=== PATIENT | male | born 1965 | race Caucasian/White ===

== ENCOUNTER 2018-11-01 09:36 | Emergency (ER) | payer MEDICAID ==
[2018-11-01] MEDS ORDERED: NS 1,000 ML IV ONE (09:42)
--- NOTE | 2018-11-01 09:49 | EDPHY ---
H & P Stated Complaint: diarrhea, abdominal pain, nausea Time Seen by Provider: 11/01/18 09:36 HPI/ROS: Chief complaint: Abdominal pain History of present illness: This is a 52-year-old male who is homeless who presents to the emergency department with EMS for abdominal pain. Patient reports the onset of symptoms last night. He has subsequently developed nausea without vomiting and diarrhea. He also reports tactile fevers. He denies precipitating factors. He denies any alleviating factors. He denies other associated signs or symptoms including no noted blood in the stool. No sick contacts are noted at this time. Review of systems: A 10 point review of systems was obtained and other than described above was negative - Personal History Current Tetanus Diphtheria and Acellular Pertussis (TDAP): Yes - Medical/Surgical History Hx Asthma: No Hx Chronic Respiratory Disease: No Hx Diabetes: No Hx Cardiac Disease: No Hx Renal Disease: No Hx Cirrhosis: No Hx Alcoholism: No Hx HIV/AIDS: No Hx Splenectomy or Spleen Trauma: No Other PMH: Hep C - Social History Smoking Status: Never smoked - Physical Exam Exam: General Appearance: Alert, nontoxic, easily conversant. Eyes: Pupils equal and round no pallor or injection. ENT, Mouth: Mucous membranes moist. Respiratory: There are no retractions, lungs are clear to auscultation. Cardiovascular: Regular rate and rhythm. Gastrointestinal: Bowel sounds are normal. There is mild guarding of the abdomen. Tenderness in the epigastric region. Neurological: Alert and oriented x4. Strength and sensation intact. Skin: Warm and dry, no rashes. Musculoskeletal: Neck is supple non tender. Extremities are symmetrical, full range of motion. Psychiatric: Patient is oriented X 3, there is no agitation. Constitutional: Initial Vital Signs Temperature (C) 37.1 C 11/01/18 09:39 Heart Rate 93 11/01/18 09:39 Respiratory Rate 18 11/01/18 09:39 Blood Pressure 93/85 H 11/01/18 09:39 O2 Sat (%) 100 11/01/18 09:39 O2 Delivery Mode Room Air Allergies/Adverse Reactions: diphenhydramine [From Benadryl] Allergy (Verified 11/01/18 12:56) Sulfa (Sulfonamide Antibiotics) Allergy (Verified 11/01/18 12:56) vancomycin Allergy (Verified 01/16/19 12:56) Home Medications: Medication Instructions Recorded Wellbutrin Sr 11/01/18 Medical Decision Making - Diagnostics Imaging Results: Imaging Impressions Abdomen Ultrasound 11/01/18 10:50 Impression: Cholelithiasis without evidence of cholecystitis. Findings discussed with TOSHIA Deleon 11/01/2018 at 11:20. Abdomen CT 11/01/18 11:25 Impression: 1. Fluid distention of the stomach with fluid throughout small bowel and proximal colon, which is nonspecific but could be related to enteritis. 2. Soft tissue extending from the dome of the bladder to the umbilicus, suggesting a patent urachus. Urology consultation is recommended. 3. Cholelithiasis without evidence cholecystitis. 4. Additional findings as above. Findings discussed with Davie Ha PA-C on 11/01/2018 at 12:18. Imaging: Discussed imaging studies w/ call center agent Radiologist ED Course/Re-evaluation: Patient seen under the supervision of my secondary supervising physician Dr. Nirav Purdy. Patient presents to the emergency department with abdominal pain, nausea without vomiting and diarrhea. He is nontoxic. He does have a tender abdomen. Blood studies largely unremarkable. Gallstones noted on ultrasound without evidence of complications such as cholecystitis. CT scan consistent with an enteritis. Patient has been IV hydrated. He is tolerating oral challenges. He is discharged. Home care is discussed. Return precautions are given. Differential Diagnosis: Included but not limited to gastritis, gastroenteritis, biliary tract disease, pancreatitis, colitis, appendicitis - Data Points Laboratory Results: Laboratory Results 11/01/18 09:50 11/01/18 09:50 11/01/18 11/01/18 11/01/18 11:15 09:50 09:50 WBC 8.81 10^3/uL 10^3/uL (3.80-9.50) RBC 5.73 10^6/uL 10^6/uL (4.40-6.38) Hgb 17.7 g/dL H g/dL (13.7-17.5) Hct 49.6 % % (40.0-51.0) MCV 86.6 fL fL (81.5-99.8) MCH 30.9 pg pg (27.9-34.1) MCHC 35.7 g/dL g/dL (32.4-36.7) RDW 13.2 % % (11.5-15.2) Plt Count 271 10^3/uL 10^3/uL (150-400) MPV 9.5 fL fL (8.7-11.7) Neut % (Auto) 90.4 % H % (39.3-74.2) Lymph % (Auto) 4.9 % L % (15.0-45.0) [place] % (Auto) 4.1 % L % (4.5-13.0) Eos % (Auto) 0.0 % L % (0.6-7.6) Baso % (Auto) 0.1 % L % (0.3-1.7) Nucleat RBC Rel Count 0.0 % % (0.0-0.2) Absolute Neuts (auto) 7.96 10^3/uL H 10^3/uL (1.70-6.50) Absolute Lymphs (auto) 0.43 10^3/uL L 10^3/uL (1.00-3.00) Absolute Monos (auto) 0.36 10^3/uL 10^3/uL (0.30-0.80) Absolute Eos (auto) 0.00 10^3/uL L 10^3/uL (0.03-0.40) Absolute Basos (auto) 0.01 10^3/uL L 10^3/uL (0.02-0.10) Absolute Nucleated RBC 0.00 10^3/uL 10^3/uL (0-0.01) Immature Gran % 0.5 % % (0.0-1.1) Immature Gran # 0.04 10^3/uL 10^3/uL (0.00-0.10) RBC/WBC/PLT Morphology TNP Platelet Estimate TNP Sodium 138 mEq/L mEq/L (135-145) Potassium 4.0 mEq/L mEq/L (3.5-5.2) Chloride 103 mEq/L mEq/L (97-110) Carbon Dioxide 24 mEq/l mEq/l (22-31) Anion Gap 11 mEq/L mEq/L (6-14) BUN 19 mg/dL mg/dL (7-23) Creatinine 0.9 mg/dL mg/dL (0.7-1.3) Estimated GFR > 60 Glucose 88 mg/dL mg/dL (70-100) Calcium 9.6 mg/dL mg/dL (8.5-10.4) Total Bilirubin 1.9 mg/dL H mg/dL (0.1-1.4) Conjugated Bilirubin 0.3 mg/dL mg/dL (0.0-0.5) Unconjugated Bilirubin 1.6 mg/dL H mg/dL (0.0-1.1) AST 24 IU/L IU/L (17-59) ALT 23 IU/L IU/L (21-72) Alkaline Phosphatase 83 IU/L IU/L (38-126) Total Protein 7.7 g/dL g/dL (6.3-8.2) Albumin 4.8 g/dL g/dL (3.5-5.0) Lipase 141 IU/L IU/L (23-300) Urine Color YELLOW Urine Appearance CLEAR Urine pH 5.0 (5.0-7.5) Ur Specific [place] 1.019 (1.002-1.030) Urine Protein NEGATIVE (NEGATIVE) Urine Ketones NEGATIVE (NEGATIVE) Urine Blood NEGATIVE (NEGATIVE) Urine Nitrate NEGATIVE (NEGATIVE) Urine Bilirubin NEGATIVE (NEGATIVE) Urine Urobilinogen NEGATIVE EU EU (0.2-1.0) Ur Leukocyte Esterase NEGATIVE (NEGATIVE) Urine RBC 1-3 /hpf /hpf (0-3) Urine WBC 1-3 /hpf /hpf (0-3) Ur Epithelial Cells TRACE /lpf /lpf (NONE-1+) Urine Mucus TRACE /lpf /lpf (NONE-1+) Urine Glucose NEGATIVE (NEGATIVE) Medications Given: Discontinued Medications Sodium Chloride (Ns) 1,000 mls @ 0 mls/hr IV EDNOW ONE; Wide Open PRN Reason: Protocol Stop: 11/01/18 09:43 Last Admin: 11/01/18 09:47 Dose: 1,000 mls Departure - Departure Disposition: Home, Routine, Self-Care Clinical Impression: Abdominal pain Qualifiers: Abdominal location: generalized Qualified Code(s): R10.84 - Generalized abdominal pain Condition: Good Instructions: Acute Nausea and Vomiting (ED), Acute Diarrhea (ED), Acute Abdominal Pain (ED) Additional Instructions: Follow-up with a primary care doctor for continued evaluation and care Drink plenty of fluids to stay hydrated You should follow-up with the urologist for the urinary bladder finding on the CT scan If symptoms worsen or new symptoms develop return to the emergency department for recheck Referrals: Patient,NotPresent [Unknown] - As per Instructions [facility],. [Clinic] - As per Instructions Ulisses Sanchez MD [Medical Doctor] - As per Instructions
[2018-11-01 10:11] LABS: PLATELET COUNT 271 10^3/uL (150-400)
[2018-11-01] MEDS ORDERED: IOPAMIDOL (ISOVUE 370) 100 ML BTL IV ONE (11:35)
[2018-11-01 12:41] VITALS: BP 114/65
== END 2018-11-01 12:39 | disposition home or self-care (01) ==
DX: R10.84 Generalized abdominal pain (principal); R11.2 Nausea with vomiting, unspecified; E86.9 Volume depletion, unspecified; B19.20 Unspecified viral hepatitis C without hepatic coma; Z59.0 Homelessness
CPT/HCPCS: Q9967

== ENCOUNTER 2018-11-01 12:56 | Emergency (ER) | payer MEDICAID ==
[2018-11-01] MEDS ORDERED: ONDANSETRON 4MG PREPACK#2 BTL TAKEHOME ONE (13:56)
[2018-11-01] MEDS ORDERED: ONDANSETRON DISINTEGRATING 4 MG TAB PO ONE (13:56)
--- NOTE | 2018-11-01 13:59 | EDPHY ---
H & P Stated Complaint: INSISTS ON CHECKING BACK IN/[facility] Time Seen by Provider: 11/01/18 13:44 HPI/ROS: Chief complaint: Diarrhea History of present illness: This is a 52-year-old male who I just saw in the Emergency Department who checked back in only a few minutes after being discharged for ongoing diarrhea. Patient developed abdominal discomfort with associated nausea but no vomiting as well as multiple episodes of diarrhea last night. Symptoms have been ongoing. Since being discharged there has been no change. He is just concerned because he has had another episode of diarrhea. No reported blood in the stool. Review of systems: A 10 point review of systems was obtained and other than described above was negative - Personal History Current Tetanus Diphtheria and Acellular Pertussis (TDAP): Yes - Medical/Surgical History Hx Asthma: No Hx Chronic Respiratory Disease: No Hx Diabetes: No Hx Cardiac Disease: No Hx Renal Disease: No Hx Cirrhosis: No Hx Alcoholism: No Hx HIV/AIDS: No Hx Splenectomy or Spleen Trauma: No Other PMH: Hep C - Social History Smoking Status: Never smoked - Physical Exam Exam: General Appearance: Alert, no distress. Eyes: Pupils equal and round no pallor or injection. ENT, Mouth: Mucous membranes moist. Respiratory: There are no retractions, lungs are clear to auscultation. Cardiovascular: Regular rate and rhythm. Gastrointestinal: Bowel sounds normal. Diffuse tenderness. No guarding. Neurological: Alert and oriented. Strength and sensation intact and symmetrical. Skin: Warm and dry, no rashes. Musculoskeletal: Neck is supple non tender. Extremities are symmetrical, full range of motion. He is ambulating on his own. Psychiatric: Patient is oriented X 3, there is no agitation. Constitutional: Initial Vital Signs Temperature (C) 36.8 C 11/01/18 12:57 Heart Rate 98 11/01/18 12:57 Respiratory Rate 17 11/01/18 12:57 Blood Pressure 94/64 L 11/01/18 12:57 O2 Sat (%) 97 11/01/18 12:57 O2 Delivery Mode Room Air Allergies/Adverse Reactions: diphenhydramine [From Benadryl] Allergy (Verified 11/01/18 12:56) Sulfa (Sulfonamide Antibiotics) Allergy (Verified 11/01/18 12:56) vancomycin Allergy (Verified 11/01/18 12:56) Home Medications: Medication Instructions Recorded Wellbutrin Sr 11/01/18 Medical Decision Making ED Course/Re-evaluation: Patient seen under the supervision of my secondary supervising physician Dr. Jayden Connell. Patient returns to the emergency department for another episode of diarrhea. He is nontoxic. His abdominal exam has not changed since I saw him previously. He has already had an extensive workup. He was IV hydrated previously. He is tolerating oral challenges without difficulty. I have again discussed with him he should expect ongoing diarrhea for the next day or two until symptoms clear. Home care is discussed with him including hydration. He is given return precautions. He has voiced understanding and agreement with plan. Differential Diagnosis: Likely and enteritis. As per my last evaluation there was initially concern for gastritis, biliary tract disease, pancreatitis, colitis, however he had a largely unremarkable workup - Data Points Medications Given: Discontinued Medications Ondansetron HCl (Zofran Odt) 4 mg PO EDNOW ONE Stop: 11/01/18 13:57 Last Admin: 11/01/18 14:05 Dose: Not Given Ondansetron HCl (Zofran Odt 4 Mg Prepack#2) 1 btl TAKEHOME EDNOW ONE Stop: 11/01/18 13:57 Last Admin: 11/01/18 14:05 Dose: Not Given Departure - Departure Disposition: Home, Routine, Self-Care Clinical Impression: Abdominal pain Qualifiers: Abdominal location: generalized Qualified Code(s): R10.84 - Generalized abdominal pain Diarrhea Qualifiers: Diarrhea type: unspecified type Qualified Code(s): R19.7 - Diarrhea, unspecified Condition: Good Instructions: Acute Diarrhea (ED), Acute Abdominal Pain (ED) Additional Instructions: Follow-up with a primary care doctor for recheck If symptoms worsen or new symptoms develop return to the emergency department for recheck Referrals: NONE *PRIMARY CARE P,. [Primary Care Provider] - As per Instructions [facility],. [Clinic] - As per Instructions
[2018-11-01 14:06] VITALS: BP 101/66
== END 2018-11-01 14:13 | disposition home or self-care (01) ==
DX: R10.84 Generalized abdominal pain (principal); R19.7 Diarrhea, unspecified; B19.20 Unspecified viral hepatitis C without hepatic coma